=== PATIENT | female | born 1985 | race Caucasian/White ===

== ENCOUNTER 2019-06-19 07:25 | Outpatient (CLI) | payer OTHER | END 2019-06-19 14:00 | disposition home or self-care (01) | LOC: OBS/DEL 07:25 | DX: O26.893 Other specified pregnancy related conditions, third trimester (principal); N89.8 Other specified noninflammatory disorders of vagina ==

== ENCOUNTER 2019-06-30 14:45 | Inpatient (IN) | payer OTHER ==
[~2019-06-30] VITALS: Ht 165.1 cm; Wt 107.0 kg
[2019-07-08] MEDS ORDERED: LEVO-T100 MCG PO (08:00)
[2019-07-08] MEDS ORDERED: PRENATAL TABLE1 EAC1 PO (08:00)
[2019-07-08] MEDS ORDERED: ASPIR 8181 MG PO (08:02)
== END 2019-07-10 17:25 | DRG 807 ==
LOC: OB/GYN 07-08 07:08 → LDR 07-08 07:08 → OB/GYN 07-08 23:02
PROVIDERS: ADMIT Obstetrics & Gynecology
PROC: 10E0XZZ Delivery of Products of Conception, External Approach (ICD-10-PCS; principal; 2019-07-08)
PROC: 0UQMXZZ Repair Vulva, External Approach (ICD-10-PCS; 2019-07-08)
PROC: 4A033R1 Measurement of Arterial Saturation, Peripheral, Percutaneous Approach (ICD-10-PCS; 2019-07-08)
PROC: 4A1HXCZ Monitoring of Products of Conception, Cardiac Rate, External Approach (ICD-10-PCS; 2019-07-08)
DX: O71.82 Other specified trauma to perineum and vulva (principal); Z37.0 Single live birth; Z3A.38 38 weeks gestation of pregnancy